=== PATIENT | female | born 1970 | race Asian ===

== ENCOUNTER → 2019-06-10 | Outpatient (REF) | payer OTHER | LOC: M LAB LCGH 11:58 | PROVIDERS: ATTEND Nurse Practitioner Adult Health | DX: Z12.4 Encounter for screening for malignant neoplasm of cervix (principal) | CPT/HCPCS: 87624; G0123 ==

== ENCOUNTER 2020-10-27 15:25 | Emergency (ER) | payer BC, OTHER ==
[~2020-10-27] VITALS: Ht 162.6 cm; Wt 56.0 kg
[2020-10-27] MEDS ORDERED: MORPHINE 2 MG/ML 1ML VIAL (J2270) IV ONE (16:45)
[2020-10-27] MEDS ORDERED: ONDANSETRON 4MG/2ML VIAL IV ONE (16:45)
[2020-10-27 16:49] LABS: BASO % 0.6 % (0.0-1.0); EOS # 0.1 10^3/uL (0.0-0.5); HEMATOCRIT 46.8 % (36.0-47.0); HEMOGLOBIN 15.8 g/dl (12.0-15.5); LYMPH # 2.9 10^3/uL (1.5-5.0); LYMPH % 46.4 % (24.0-44.0); MEAN CORPUSCULAR HEMOGLOBIN 33.8 pg (27.0-33.0); MEAN CORPUSCULAR HGB CONC 33.8 g/dl (32.0-36.5); MONO # 0.3 10^3/uL (0.0-0.8); MONO % 5.4 % (2.0-8.0); NEUTROPHILS # 2.9 10^3/uL (1.5-8.5); NEUTROPHILS % 46.4 % (36.0-66.0); PLATELET COUNT, AUTOMATED 223 10^3/uL (150-450); RED BLOOD COUNT 4.68 10^6/uL (4.00-5.40); WHITE BLOOD COUNT 6.3 10^3/uL (4.0-10.0)
[2020-10-27 17:11] LABS: ALBUMIN 4.6 GM/DL (3.2-5.2); ALT/SGPT 19 U/L (12-78); BILIRUBIN,DIRECT 0.1 MG/DL (0.0-0.2); BILIRUBIN,TOTAL 0.5 MG/DL (0.2-1.0); BLOOD UREA NITROGEN 10 MG/DL (7-18); CALCIUM LEVEL 9.8 MG/DL (8.5-10.1); CARBON DIOXIDE LEVEL 29 MEQ/L (21-32); CHLORIDE LEVEL 101 MEQ/L (98-107); CREATININE FOR GFR 0.86 MG/DL (0.55-1.30); GLOMERULAR FILTRATION RATE > 60.0 (>51); GLUCOSE, FASTING 82 MG/DL (70-100); LIPASE 134 U/L (73-393); POTASSIUM SERUM 3.8 MEQ/L (3.5-5.1); SODIUM LEVEL 136 MEQ/L (136-145); TOTAL PROTEIN 7.9 GM/DL (6.4-8.2)
--- NOTE | 2020-10-27 18:22 | REP ---
INDICATION: right abd/flank pain. FINDINGS: Multiple ultrasonographic images of the liver show the hepatic parenchymal echo texture to appear unremarkable. There are no focal masses. There is no intrahepatic ductal dilatation. The common bile duct measures approximately 5 mm mm in its greatest transverse dimension. Multiple ultrasonographic images of the gallbladder show no focal or diffuse gallbladder wall thickening. There are no echogenic foci within the gallbladder lumen, which casts acoustic shadows. There is no pericholecystic edema. Images of the pancreatic region show no gross abnormality. The imaged portion of the right kidney is unremarkable. IMPRESSION: Unremarkable right upper quadrant ultrasound. Accredited by the [employer] in General Ultrasound. <Electronically signed by Gustabo Iraheta > 10/27/20 [id number]
[2020-10-27] MEDS ORDERED: HYDR50TA70 (18:25)
[2020-10-27] MEDS ORDERED: HYDR-4571 (18:25)
[2020-10-27] MEDS ORDERED: [UNRECOGNIZED DRUG - OTHER] PO (18:25)
[2020-10-27] MEDS ORDERED: VALA1TAB5 (18:25)
[2020-10-27] MEDS ORDERED: GI COCKTAIL 50ML BTL(HYOSCYAMINE/MAALOX/LIDOCAINE VISCOUS)(1:3:1) PO ONE (18:35)
[2020-10-27] MEDS ORDERED: PROT1TAB2 PO (19:42)
[2020-10-27 19:48] VITALS: BP 110/71
== END 2020-10-27 20:04 | disposition home or self-care (01) ==
LOC: M ED 15:25
DX: K52.9 Noninfective gastroenteritis and colitis, unspecified (principal); N18.9 Chronic kidney disease, unspecified; Z87.442 Personal history of urinary calculi; F17.200 Nicotine dependence, unspecified, uncomplicated; Z88.0 Allergy status to penicillin; Z88.5 Allergy status to narcotic agent; Z88.8 Allergy status to other drugs, medicaments and biological substances
CPT/HCPCS: 76705; 80048; 80076; 81001; 83690; 85025; 96374; 96375; 99284; J2270; J2405

== ENCOUNTER → 2021-02-08 | Outpatient (REF) | payer BC, OTHER ==
[~2021-02-08] MED LIST: HYDR-4571; HYDR50TA70; PROT1TAB2 PO; VALA1TAB5; [UNRECOGNIZED DRUG - OTHER] PO
== END ==
LOC: M LAB REF 17:17
PROVIDERS: ATTEND Internal Medicine Nephrology
DX: N20.0 Calculus of kidney (principal)

== ENCOUNTER → 2023-01-05 | Outpatient (REF) | payer BC, OTHER | LOC: M LAB REF 14:11 | PROVIDERS: ATTEND Nurse Practitioner Family | DX: R31.21 Asymptomatic microscopic hematuria (principal) ==